=== PATIENT | female | born 1985 | race Caucasian/White ===

== ENCOUNTER → 2017-06-25 | Outpatient (CLI) | payer BC ==
[2017-06-26 08:06] LABS: HSV 1 IgG Antibody <0.91 index (0.00-0.90); HSV 2 IgG Antibody <0.91 index (0.00-0.90)
== END | disposition home or self-care (01) ==
LOC: LAB 14:49
PROVIDERS: ATTEND Obstetrics & Gynecology
DX: N94.9 Unspecified condition associated with female genital organs and menstrual cycle (principal)
CPT/HCPCS: 86695; 86696